=== PATIENT | female | born 1970 ===

== ENCOUNTER 2023-03-11 16:12 | Emergency (ER) | payer OTHER, SELFPAY ==
[2023-03-11 16:35] VITALS: BP 163/77; PULSE 63; RESP 18; TEMP 37.2; O2SAT 99; BMI 24.6
[2023-03-11 17:11] LABS: Add Manual Diff / Slide Review NO; Basophils Absolute Auto 0 /uL (0-100); Basophils Percent Auto 0.8 % (0-2); Eosinophils Absolute Auto 100 /uL (0-450); Eosinophils Percent Auto 2.9 % (2-4); Hematocrit 39.5 % (36-46); Hemoglobin 13.5 g/dL (12.0-16.0); Lymphocytes Absolute Auto 1300 /uL (1100-4500); Lymphocytes Percent Auto 36.7 % (25-40); Mean Corpuscular HGB Conc 34.2 % (30-36); Mean Corpuscular Hemoglobin 30.1 PG (26-34); Mean Corpuscular Volume 88.1 fL (80-100); Monocytes Absolute Auto 600 /uL (0-900); Neutrophils Absolute Auto 1500 /uL (1500-7000); Neutrophils Percent Auto 43.6 % (50-75); Platelet Count 245 X10^3/uL (150-400); Red Blood Cell Count 4.48 X10^6/uL (4.0-5.2); Red Cell Distribution Width 12.7 % (11.6-14.8); White Blood Cell Count 3.5 X10^3/uL (4.5-11.0)
[2023-03-11 17:15] LABS: Alanine Aminotransferase 28 IU/L (<35); Albumin Globulin Ratio 1.3 (1.0-2.8); Alkaline Phosphatase 65 U/L (38-126); Aspartate Aminotransferase 28 IU/L (14-36); BUN Creatinine Ratio 26.7 (6-22); Bilirubin Total 0.4 mg/dL (0.2-1.3); Blood Urea Nitrogen 16 mg/dL (7-17); Calcium 8.9 mg/dL (8.4-10.2); Carbon Dioxide 27 mmol/L (22-32); Chloride 102 mmol/L (98-107); Estimated Glomerular Filt Rate > 60 mL/min (>60); Globulin 3.1 g/dL (1.7-4.1); Glucose 80 mg/dL (70-100); HEMOLYSIS 17 (0-50); Lipase 75 U/L (23-300); Potassium 4.1 mmol/L (3.4-5.1); Sodium 136 mmol/L (137-145); Total Protein 7.1 g/dL (6.3-8.2)
[2023-03-11 21:19] LABS: Bacteria Urine Few (2-10); Culture Indicated Urine Specimen Cultured; RBC Urine 5-10/HPF (0-5/HPF); Squamous Epithelial Cell Urine 1-5 /HPF (0-5/HPF); Transitional Epi Cells Urine 0-1/HPF (0-5/HPF); WBC Urine 5-10/HPF (0-5/HPF)
[2023-03-11 21:23] LABS: Ictotest Urine Negative (Negative)
--- NOTE | 2023-03-11 21:25 | ED_ITS ---
HPI - Abdominal Pain General Chief Complaint: Abdominal Pain Stated Complaint: Vomiting, Blood in urine Time Seen by Provider: 03/11/23 20:52 Source: patient Mode of arrival: Ambulatory History of Present Illness HPI narrative: Patient is a 52-year-old female who presents with nausea vomiting abdominal pain. She reports she is had intermittent vomiting early satiety ongoing since June. She reports that she did have a CT at some point. She also reports that she had an EGD which was normal. She does not remember that she is had a colonoscopy. Today it is just been on going she is feeling a bit better after Zofran and waiting for numerous hours in the emergency department. She was dizzy little lightheaded and her head hurts as well. No passing out. Her symptoms have been ongoing since at least January of 2022 however pain and vomiting today brought her in Related Data Previous Rx's Medication Instructions Recorded ciprofloxacin HCl 500 mg tablet 500 mg PO BID #14 tabs 03/11/23 (Cipro) metronidazole 500 mg tablet 500 mg PO Q8H 7 days #21 tabs 03/11/23 ondansetron 4 mg disintegrating 4 mg PO Q8H PRN nausea and 03/11/23 tablet vomiting #10 tabs Allergies Allergy/AdvReac Type Severity Reaction Status Date / Time erythromycin base Allergy Mild Vomiting Verified 03/11/23 16:52 Review of Systems Review of Systems ROS Unobtainable: All systems reviewed & are unremarkable except as noted in HPI and below Patient History Social History Smoking Status: Never smoker Smoking Status: Never smoker Substance Use Type: does not use Exam Initial Vital Signs Initial Vital Signs: Vital Signs Temperature 99.0 F 03/11/23 16:35 Pulse Rate 63 03/11/23 16:35 Respiratory Rate 18 03/11/23 16:35 Blood Pressure 163/77 H 03/11/23 16:35 Pulse Oximetry 99 03/11/23 16:35 Oxygen Delivery Method Room Air 03/11/23 16:35 GENERAL: Alert pleasant 52-year-old female appears to not feel well and in no acute distress. HEENT: Head atraumatic,EOMI, pupils reactive, face symmetric, moist mucous membranes CARDIOVASCULAR: Regular rate and rhythm without murmurs, rubs or gallops. RESPIRATORY: Breath sounds equal bilaterally, no wheezes rales or rhonchi. ABDOMEN: Soft, nontender. Normoactive bowel sounds all 4 quadrants. No guarding or rebound. : No CVA tenderness EXTREMITIES: Normal range of motion, no clubbing or edema. Neurovascularly intact NEUROLOGICAL: Alert and oriented x4. SKIN: Warm, dry, no laceration, no petechiae, no rashes or lesions. Course Orders Ordered: ED Orders 03/11/23 21:29 CT abdomen pelvis w con Stat Discontinued Medications Sodium Chloride (Normal Saline 0.9%) 1,000 mls @ 1,000 mls/hr IV BOLUS ONE Stop: 03/11/23 22:28 Last Infusion: 03/11/23 22:50 Dose: 0 mls/hr Documented By: Admin: 03/11/23 21:50 Dose: 1,000 mls/hr Documented By: VIELKA Ketorolac Tromethamine (Ketorolac 30 Mg/Ml Vial) 15 mg IV NOW ONE Stop: 03/11/23 21:30 Last Admin: 03/11/23 21:51 Dose: 15 mg Documented By: VIELKA Ondansetron HCl (Ondansetron 4 Mg/2 Ml Inj) 4 mg IV NOW PRN PRN Reason: Nausea And Vomiting Last Admin: 03/11/23 21:51 Dose: 4 mg Documented By: VIELKA Pantoprazole Sodium (Pantoprazole 40 Mg Vial) 40 mg IV NOW ONE Stop: 03/11/23 21:30 Last Admin: 03/11/23 21:51 Dose: 40 mg Documented By: VIELKA Vital Signs Vital signs: Vital Signs - 8 hr 03/11/23 23:20 Temperature 97.3 F L Pulse Rate 70 Respiratory Rate 16 Blood Pressure 122/68 Pulse Oximetry 99 Oxygen Delivery Method Room Air MDM - Abdominal Pain Lab Data 03/11/23 16:51 03/11/23 16:51 Labs: Lab Results 03/11/23 03/11/23 03/11/23 Range/Units 16:51 16:51 20:30 WBC 3.5 L (4.5-11.0) X10^3/uL RBC 4.48 (4.0-5.2) X10^6/uL Hgb 13.5 (12.0-16.0) g/dL Hct 39.5 (36-46) % MCV 88.1 (80-100) fL MCH 30.1 (26-34) PG MCHC 34.2 (30-36) % RDW 12.7 (11.6-14.8) % Plt Count 245 (150-400) X10^3/uL Neut % (Auto) 43.6 L (50-75) % Lymph % (Auto) 36.7 (25-40) % [place] % (Auto) 16.0 H (3-14) % Eos % (Auto) 2.9 (2-4) % Baso % (Auto) 0.8 (0-2) % Neut # (Auto) 1500 (6571-3362) /uL Lymph # (Auto) 1300 (5621-8196) /uL [place] # (Auto) 600 (0-900) /uL Eos # (Auto) 100 (0-450) /uL Baso # (Auto) 0 (0-100) /uL Sodium 136 L (137-145) mmol/L Potassium 4.1 (3.4-5.1) mmol/L Chloride 102 (98-107) mmol/L Carbon Dioxide 27 (22-32) mmol/L BUN 16 (7-17) mg/dL Creatinine 0.60 (0.52-1.04) mg/dL Estimated GFR > 60 (>60) mL/min BUN/Creatinine Ratio 26.7 H (6-22) Glucose 80 (70-100) mg/dL Calcium 8.9 (8.4-10.2) mg/dL Total Bilirubin 0.4 (0.2-1.3) mg/dL AST 28 (14-36) IU/L ALT 28 (<35) IU/L Alkaline Phosphatase 65 (38-126) U/L Total Protein 7.1 (6.3-8.2) g/dL Albumin 4.0 (3.5-5.0) g/dL Globulin 3.1 (1.7-4.1) g/dL Albumin/Globulin Ratio 1.3 (1.0-2.8) Lipase 75 (23-300) U/L Ur Bilirubin Confirm (Negative) Urine RBC 5-10/hpf H (0-5/HPF) Urine WBC 5-10/hpf H (0-5/HPF) Ur Squamous Epith Cells 1-5 /hpf (0-5/HPF) Ur Transition Epith Cell 0-1/hpf (0-5/HPF) Urine Bacteria Few (2-10) H (None) Ur Culture Indicated? Specimen cultured 03/11/23 Range/Units 20:30 WBC (4.5-11.0) X10^3/uL RBC (4.0-5.2) X10^6/uL Hgb (12.0-16.0) g/dL Hct (36-46) % MCV (80-100) fL MCH (26-34) PG MCHC (30-36) % RDW (11.6-14.8) % Plt Count (150-400) X10^3/uL Neut % (Auto) (50-75) % Lymph % (Auto) (25-40) % [place] % (Auto) (3-14) % Eos % (Auto) (2-4) % Baso % (Auto) (0-2) % Neut # (Auto) (8365-8431) /uL Lymph # (Auto) (0452-7709) /uL [place] # (Auto) (0-900) /uL Eos # (Auto) (0-450) /uL Baso # (Auto) (0-100) /uL Sodium (137-145) mmol/L Potassium (3.4-5.1) mmol/L Chloride (98-107) mmol/L Carbon Dioxide (22-32) mmol/L BUN (7-17) mg/dL Creatinine (0.52-1.04) mg/dL Estimated GFR (>60) mL/min BUN/Creatinine Ratio (6-22) Glucose (70-100) mg/dL Calcium (8.4-10.2) mg/dL Total Bilirubin (0.2-1.3) mg/dL AST (14-36) IU/L ALT (<35) IU/L Alkaline Phosphatase (38-126) U/L Total Protein (6.3-8.2) g/dL Albumin (3.5-5.0) g/dL Globulin (1.7-4.1) g/dL Albumin/Globulin Ratio (1.0-2.8) Lipase (23-300) U/L Ur Bilirubin Confirm Negative (Negative) Urine RBC (0-5/HPF) Urine WBC (0-5/HPF) Ur Squamous Epith Cells (0-5/HPF) Ur Transition Epith Cell (0-5/HPF) Urine Bacteria (None) Ur Culture Indicated? Point of care testing: Urine Dip Bedside Urine Glucose Negative Bedside Urine Bilirubin + 1 Bedside Urine Ketone - Negative Urine Specific [place] 1.030 Bedside Urine Occult Blood ++ Bedside Urine pH 5.5 Bedside Urine Protein +/- 15 Bedside Urine Urobilinogen - Negative Bedside Urine Nitrite - Negative Bedside Urine Leukocytes - Negative Esterase Imaging Data CT scan - abdomen/pelvis: Radiologist's Impression: PROCEDURE:? CT ABDOMEN PELVIS W CON ? INDICATIONS:? vomiting hematuria, ? TECHNIQUE:? After the administration of IV contrast, axial sections were acquired from the lung bases to the pubic symphysis.? Coronal and sagittal reformats were performed.? For radiation dose reduction, the following was used:? automated exposure control, adjustment of mA and/or kV according to patient size. ? COMPARISON:? None. ? FINDINGS:? Image quality:? Excellent.? ? Lung bases:? There is minimal atelectasis.? ? Heart:? Heart is normal in size. ? ? ABDOMEN: Liver:? No discrete mass lesion.? There is heterogeneous enhancement of the liver. Gallbladder:? Within normal limits without calcified gallstones.? ? Biliary ducts:? No biliary ductal dilatation.? ? Pancreas:? Unremarkable.? ? Spleen:? Normal in size.? ? Adrenal Glands:? No adrenal nodules.? ? Kidneys and Ureters:? No hydronephrosis.? No discrete renal stone identified.? ? ? Stomach and Bowel:? Stomach and small bowel loops are normal in caliber and wall thickness.? The appendix is normal.? There is mild bowel wall thickening in the rectum.? Peritoneum:? There is a small amount of free fluid in the pelvis.? No free air.? ? Ventral Wall: ? No hernia.? Abdominal Nodes:? No retroperitoneal or mesenteric adenopathy by size criteria.? Vessels:? Aorta and inferior vena cava are normal in size.? ? PELVIS: Pelvic Organs:? Unremarkable.? ? Bladder:? Unremarkable.? ? Pelvic Nodes: No enlarged lymph nodes.? Miscellaneous: No inguinal hernias are seen. ? ? ? Bones:? Visualized osseous structures demonstrate no suspicious focal lesions. ? IMPRESSION:? ? 1.? Mild rectal wall thickening is nonspecific and may reflect a proctocolitis but the differential includes a mass.? Recommend correlation clinically including with colonoscopy if indicated. ? 2. Small amount of free fluid in the pelvis is nonspecific and may be reactive. ? 3. Heterogeneous enhancement the liver without a discrete mass.? The findings are also nonspecific and correlation is recommended with liver function tests.? ? ? Dictated by: Parveen Thomas M.D. on 03/11/2023 at 22:4 MDM Narrative Medical decision making narrative: Patient 52-year-old female does not have a primary care provider presents today with ongoing abdominal pain nausea vomiting. She has early satiety concern for possible underlying cancer. CT does show possible proctocolitis versus a mass. She does have a WBC count of 3.5 no significant anemia electrolytes are within normal limits no RADHA. She is necessarily having pain in her rectum or fever she has some epigastric upper abdominal pain with nausea vomiting. At this time I think reasonable to treat her with antibiotics to see if there is improvement. I did discuss with her at length concern for underlying malignancy she needs a colonoscopy which she understands and agrees with. No need for any emergent colonoscopy she does not have any type of obstruction. She is feeling better af ter IV fluids and Zofran. Discharge Plan Departure Patient Disposition: Home Clinical Impression: Proctocolitis Instructions: DI for Colitis Activity Restrictions/Additional Instructions: *You have been diagnosed with proctocolitis *What to do: At this time you definitely need colonoscopy for cancer screening. Your rectum is inflamed may be due to infection versus a mass. *Continue to take medications as directed Cipro 500 mg twice a day for 7 days Flagyl 500 mg 3 times a day for 7 days Zofran 4 mg every 8 hours if needed for nausea or vomiting *Follow up with your primary care provider in 2-3 days or call [phone] Call surgery to schedule outpatient colonoscopy *Return to ER if you should have increasing nausea vomiting pain bloody stools dizziness lightheadedness or any new, worsening or concerning symptoms Prescriptions: New metronidazole 500 mg tablet 500 mg PO Q8H 7 Days Qty: 21 0RF ciprofloxacin HCl [Cipro] 500 mg tablet 500 mg PO BID Qty: 14 0RF ondansetron 4 mg tablet,disintegrating 4 mg PO Q8H PRN (Reason: nausea and vomiting) Qty: 10 0RF Referrals: Melisa Ayers MD [Physician] - Miscellaneous,MD Ronal [Primary Care Provider] - Stand Alone Forms: Patient Portal/API
--- NOTE | 2023-03-11 21:29 | DI.CT.S_ITS ---
PROCEDURE: CT ABDOMEN PELVIS W CON INDICATIONS: vomiting hematuria, TECHNIQUE: After the administration of IV contrast, axial sections were acquired from the lung bases to the pubic symphysis. Coronal and sagittal reformats were performed. For radiation dose reduction, the following was used: automated exposure control, adjustment of mA and/or kV according to patient size. COMPARISON: None. FINDINGS: Image quality: Excellent. Lung bases: There is minimal atelectasis. Heart: Heart is normal in size. ABDOMEN: Liver: No discrete mass lesion. There is heterogeneous enhancement of the liver. Gallbladder: Within normal limits without calcified gallstones. Biliary ducts: No biliary ductal dilatation. Pancreas: Unremarkable. Spleen: Normal in size. Adrenal Glands: No adrenal nodules. Kidneys and Ureters: No hydronephrosis. No discrete renal stone identified. Stomach and Bowel: Stomach and small bowel loops are normal in caliber and wall thickness. The appendix is normal. There is mild bowel wall thickening in the rectum. Peritoneum: There is a small amount of free fluid in the pelvis. No free air. Ventral Wall: No hernia. Abdominal Nodes: No retroperitoneal or mesenteric adenopathy by size criteria. Vessels: Aorta and inferior vena cava are normal in size. PELVIS: Pelvic Organs: Unremarkable. Bladder: Unremarkable. Pelvic Nodes: No enlarged lymph nodes. Miscellaneous: No inguinal hernias are seen. Bones: Visualized osseous structures demonstrate no suspicious focal lesions. IMPRESSION: 1. Mild rectal wall thickening is nonspecific and may reflect a proctocolitis but the differential includes a mass. Recommend correlation clinically including with colonoscopy if indicated. 2. Small amount of free fluid in the pelvis is nonspecific and may be reactive. 3. Heterogeneous enhancement the liver without a discrete mass. The findings are also nonspecific and correlation is recommended with liver function tests. Dictated by: Parveen Thomas M.D. on 03/11/2023 at 22:48 Approved by: Parveen Thomas M.D. on 03/11/2023 at 22:52
[2023-03-11] MEDS: SODIUM CHLORIDE 0.9% 1,000 ML 1000 ML IV (21:50)
[2023-03-11] MEDS: KETOROLAC 30 MG/ML VIAL 15 MG IV (21:51)
[2023-03-11] MEDS: PANTOPRAZOLE 40 MG VIAL IV (21:51)
[2023-03-11] MEDS: ONDANSETRON 4 MG/2 ML INJ IV (21:51)
[2023-03-11 23:20] VITALS: BP 122/68; PULSE 70; RESP 16; TEMP 36.3; O2SAT 99
== END 2023-03-11 23:20 | disposition home or self-care (01) ==
PROVIDERS: Emergency Medicine; Emergency Provider Emergency Medicine
DX: K52.9 Noninfective gastroenteritis and colitis, unspecified (principal); R11.2 Nausea with vomiting, unspecified
CPT/HCPCS: 36415; 74177; 80053; 81003; 81015; 83690; 85025; 87086; 93005; 96361; 96374; 96375; 99284; C9113; J1885; J2405; Q9967

== ENCOUNTER 2023-03-21 12:52 | Emergency (ER) | payer OTHER, SELFPAY ==
[2023-03-21] VITALS (7 sets, daily range): BP systolic 132–171; BP diastolic 75–90; PULSE 60–70; RESP 18; TEMP 36.3; O2SAT 99–100; BMI 24.6
--- NOTE | 2023-03-21 12:56 | ED_ITS ---
HPI - Abdominal Pain <iVcente Clay PA-C - Last Filed: 03/21/23 17:57> General Chief Complaint: Abdominal Pain Stated Complaint: here t-10/symptoms worsening/urine dark brown Time Seen by Provider: 03/21/23 12:53 History of Present Illness HPI narrative: This is a 52-year-old female presents emergency department due to sensations of early satiety, nausea, 1 episode of vomiting as well as a dark colored urine. Patient states that she was here 10 days ago where she was seen and received antibiotics in the CT scan and recommended follow up with the GI. She attempted to make an appointment with GI but states she is not able to be seen until May. Patient is not have a primary care provider. Denies any new symptoms just continue symptoms from what she was having previously. States that she is had loose stools but denies any significant diarrhea feet, fevers, blood in his stool, or blood in the vomit. Related Data Previous Rx's Medication Instructions Recorded ciprofloxacin HCl 500 mg tablet 500 mg PO BID #14 tabs 03/11/23 (Cipro) ondansetron 4 mg disintegrating 4 mg PO Q8H PRN nausea and 03/11/23 tablet vomiting #10 tabs pantoprazole 40 mg tablet,delayed 40 mg PO DAILY #14 tabs 03/21/23 release Allergies Allergy/AdvReac Type Severity Reaction Status Date / Time erythromycin base Allergy Mild Vomiting Verified 03/21/23 13:01 Review of Systems <Vicente Clay PA-C - Last Filed: 03/21/23 17:57> Review of Systems Narrative: GENERAL: Denies chills, fatigue, malaise, fever, sweats. HEENT: Denies sinus pain, ear pain, sore throat, difficulty swallowing, dizziness. RESPIRATORY: Denies dyspnea, cough, wheezing, hemoptysis, sputum. CARDIOVASCULAR: Denies chest pain, palpitations, orthopnea, edema, GASTROINTESTINAL: Reports nausea, vomiting, early satiety. Denies, abdominal pain, diarrhea, constipation, melena. : Denies dysuria, frequency, incontinence, hematuria, urinary retention. MUSCULOSKELETAL: denies weakness, joint pain, or bony pain SKIN: Denies rash, skin lesions, or other NEUROLOGIC: Denies weakness, headache, numbness, change in speech, confusion, seizures, incoordination. PSYCHIATRIC: No concerning psychosocial issues. 12 point review of systems is negative except for those stated above Patient History <Vicente Clay PA-C - Last Filed: 03/21/23 17:57> Social History Smoking Status: Never smoker Smoking Status: Never smoker Substance Use Type: does not use Exam <Vicente Clay PA-C - Last Filed: 03/21/23 17:57> Narrative Exam Narrative: GENERAL: Well-developed patient, in mild distress. HEAD: Atraumatic. Normocephalic. EYES: Pupils equal round and reactive. Extraocular motions intact. No scleral icterus. No injection or drainage. ENT: Nose without bleeding, purulent drainage. Throat without erythema, tonsillar hypertrophy or exudate. Airway patent. NECK: Trachea midline. Non tender CARDIOVASCULAR: Regular rate and rhythm without murmurs, gallops, or rubs. RESPIRATORY: Clear to auscultation. Breath sounds equal bilaterally. No wheezes, rales, or rhonchi. GASTROINTESTINAL: Nondistended, left upper quadrant mild tenderness to pa lpation. EXTREMITIES: No edema or joint tenderness. BACK: Nontender without deformity or crepitance. No flank tenderness. NEURO: AOx3. SKIN: No rash or erythema of visible areas Initial Vital Signs Initial Vital Signs: Vital Signs Pulse Rate 68 03/21/23 12:57 Blood Pressure 171/90 H 03/21/23 12:57 Pulse Oximetry 99 03/21/23 12:57 <Pramod Montes DO - Last Filed: 03/22/23 07:17> Initial Vital Signs Initial Vital Signs: Vital Signs Pulse Rate 68 03/21/23 12:57 Blood Pressure 171/90 H 03/21/23 12:57 Pulse Oximetry 99 03/21/23 12:57 Course <Vicente Clay PA-C - Last Filed: 03/21/23 17:57> Orders Ordered: Discontinued Medications Sodium Chloride (Normal Saline 0.9%) 1,000 mls @ 1,000 mls/hr IV BOLUS ONE Stop: 03/21/23 14:04 Last Infusion: 03/21/23 14:38 Dose: 0 mls/hr Documented By: Admin: 03/21/23 13:31 Dose: 1,000 mls/hr Documented By: LOULOU Vital Signs Vital signs: Vital Signs - 8 hr 03/21/23 13:01 03/21/23 12:57 03/21/23 12:57 Temperature 97.4 F L Pulse Rate 69 68 Respiratory Rate 18 Blood Pressure 171/90 H 171/90 H Pulse Oximetry 99 99 Oxygen Delivery Method Room Air 03/21/23 13:00 03/21/23 13:00 03/21/23 13:33 Temperature Pulse Rate 70 62 Respiratory Rate Blood Pressure 151/81 H Pulse Oximetry 100 100 Oxygen Delivery Method 03/21/23 13:34 03/21/23 13:34 03/21/23 14:00 Temperature Pulse Rate 62 Respiratory Rate Blood Pressure 159/75 H 133/77 Pulse Oximetry 100 Oxygen Delivery Method 03/21/23 14:00 03/21/23 14:30 03/21/23 14:30 Temperature Pulse Rate 60 62 Respiratory Rate Blood Pressure 132/79 Pulse Oximetry 100 100 Oxygen Delivery Method <Pramod Montes DO - Last Filed: 03/22/23 07:17> Orders Ordered: Discontinued Medications Sodium Chloride (Normal Saline 0.9%) 1,000 mls @ 1,000 mls/hr IV BOLUS ONE Stop: 03/21/23 14:04 Last Infusion: 03/21/23 14:38 Dose: 0 mls/hr Documented By: Admin: 03/21/23 13:31 Dose: 1,000 mls/hr Documented By: LOULOU Vital Signs Vital signs: Vital Signs - 8 hr 03/21/23 13:01 03/21/23 12:57 03/21/23 12:57 Temperature 97.4 F L Pulse Rate 69 68 Respiratory Rate 18 Blood Pressure 171/90 H 171/90 H Pulse Oximetry 99 99 Oxygen Delivery Method Room Air 03/21/23 13:00 03/21/23 13:00 03/21/23 13:33 Temperature Pulse Rate 70 62 Respiratory Rate Blood Pressure 151/81 H Pulse Oximetry 100 100 Oxygen Delivery Method 03/21/23 13:34 03/21/23 13:34 03/21/23 14:00 Temperature Pulse Rate 62 Respiratory Rate Blood Pressure 159/75 H 133/77 Pulse Oximetry 100 Oxygen Delivery Method 03/21/23 14:00 03/21/23 14:30 03/21/23 14:30 Temperature Pulse Rate 60 62 Respiratory Rate Blood Pressure 132/79 Pulse Oximetry 100 100 Oxygen Delivery Method MDM - Abdominal Pain <Vicente Clay PA-C - Last Filed: 03/21/23 17:57> Lab Data 03/21/23 13:14 03/21/23 13:14 Labs: Lab Results 03/21/23 03/21/23 03/21/23 Range/Units 13:14 13:14 13:31 WBC 6.3 (4.5-11.0) X10^3/uL RBC 4.35 (4.0-5.2) X10^6/uL Hgb 13.3 (12.0-16.0) g/dL Hct 37.9 (36-46) % MCV 87.3 (80-100) fL MCH 30.5 (26-34) PG MCHC 34.9 (30-36) % RDW 12.8 (11.6-14.8) % Plt Count 283 (150-400) X10^3/uL Neut % (Auto) 60.2 (50-75) % Lymph % (Auto) 27.1 (25-40) % Mckinley % (Auto) 8.9 (3-14) % Eos % (Auto) 3.2 (2-4) % Baso % (Auto) 0.6 (0-2) % Neut # (Auto) 3800 (1849-0648) /uL Lymph # (Auto) 1700 (8746-3969) /uL Mckinley # (Auto) 600 (0-900) /uL Eos # (Auto) 200 (0-450) /uL Baso # (Auto) 0 (0-100) /uL Sodium 138 (137-145) mmol/L Potassium 3.9 (3.4-5.1) mmol/L Chloride 106 (98-107) mmol/L Carbon Dioxide 27 (22-32) mmol/L BUN 10 (7-17) mg/dL Creatinine 0.65 (0.52-1.04) mg/dL Estimated GFR > 60 (>60) mL/min BUN/Creatinine Ratio 15.4 (6-22) Glucose 92 (70-100) mg/dL Calcium 8.9 (8.4-10.2) mg/dL Total Bilirubin 0.5 (0.2-1.3) mg/dL AST 38 H (14-36) IU/L ALT 41 H (<35) IU/L Alkaline Phosphatase 67 (38-126) U/L Total Protein 7.0 (6.3-8.2) g/dL Albumin 3.9 (3.5-5.0) g/dL Globulin 3.1 (1.7-4.1) g/dL Albumin/Globulin Ratio 1.3 (1.0-2.8) Lipase 89 (23-300) U/L Urine Color Scarlet Urine Appearance Cloudy Urine pH 5.0 (4.5-8.0) Ur Specific [place] >=1.030 H (1.000-1.035) Urine Protein Negative (Negative) Urine Glucose (UA) Negative (Negative) g/dL Urine Ketones 1+ H (NEGATIVE) Urine Occult Blood 1+ H (Negative) Urine Nitrate Negative (Negative) Urine Bilirubin 1+ H (NEGATIVE) Ur Bilirubin Confirm Positive H (Negative) Urine Urobilinogen 0.2 (0.2) E.U./dL Ur Leukocyte Esterase 1+ H (NEGATIVE) Urine RBC 1-5/hpf (0-5/HPF) Urine WBC 1-5/hpf (0-5/HPF) Ur Squamous Epith Cells 0-1 /hpf (0-5/HPF) Calcium Oxalate Crystal Moderate H Urine Bacteria Moderate (10-30) H (None) Urine Mucus 2+ H (Negative) Ur Culture Indicated? Specimen cultured Point of care testing: Urine Dip Bedside Urine Glucose Negative Bedside Urine Bilirubin - Negative Bedside Urine Ketone +/- 5 Urine Specific [place] 1.030 Bedside Urine Occult Blood ++ Bedside Urine pH 5.5 Bedside Urine Protein - Negative Bedside Urine Urobilinogen - Negative Bedside Urine Nitrite - Negative Bedside Urine Leukocytes ++ 125 Esterase MDM Narrative Medical decision making narrative: MDM * differential diagnosis includes but not limited to gastroenteritis, cholecystitis, pancreatitis, proctocolitis, ulcerative colitis, Crohn's disease, GI mass * Prior records reviewed: Patient was seen here 10 days ago for abdominal pain as well as vomiting and blood in urine. Reportedly has not EGD which was unremarkable. Does not recall she is had a colonoscopy. CT did show possible proctitis versus a mass. White count within normal limits. Patient was treated with antibiotics. Metronidazole, ciprofloxacin prescribed. Was recommended to follow up with her PCP for colonoscopy. * My lab interpretation: CBC unremarkable. No leukocytosis. CMP unremarkable. Lipase unremarkable. * My imgaing interpretation: None obtained * Clinical Decision Rules/Scores evaluated: None * Independent discussions with: None ED Course: This is a 52-year-old female presents emergency department due to continued sensation of early satiety, some nausea. She is not report any new symptoms but states that her symptoms are continuing her causing her to return to be re-evaluated. On exam patient is not exhibit any significant tenderness palpation that is new for the patient. The abdomen was nondistended. All of her vitals were within limits and her work was unremarkable. Shared decision making was utilized and patient elected to not receive a repeat CT as she just had a CT 10 days ago which showed proctocolitis but mass included on differential. Reinforced the importance the patient falling up with GI. She has an appointment this May. Patient has already received a course of antibiotics from visit 10 days ago and elected not to prescribe any further antibiotics due to the risks of a possible C diff infection. Pantoprazole prescribed for possible symptomatic relief. Patient did not report any dysuria or urinary frequency or urinary hesitancy. No antibiotics prescribed although UA did have positive leukocytes. Shared Decision Making: Discussed plan with patient who is comfortable with the plan Social Considerations: None Disposition: Discharged home <Pramod Montes, - Last Filed: 03/22/23 07:17> Lab Data Labs: Lab Results 03/21/23 03/21/23 03/21/23 Range/Units 13:14 13:14 13:31 WBC 6.3 (4.5-11.0) X10^3/uL RBC 4.35 (4.0-5.2) X10^6/uL Hgb 13.3 (12.0-16.0) g/dL Hct 37.9 (36-46) % MCV 87.3 (80-100) fL MCH 30.5 (26-34) PG MCHC 34.9 (30-36) % RDW 12.8 (11.6-14.8) % Plt Count 283 (150-400) X10^3/uL Neut % (Auto) 60.2 (50-75) % Lymph % (Auto) 27.1 (25-40) % Mckinley % (Auto) 8.9 (3-14) % Eos % (Auto) 3.2 (2-4) % Baso % (Auto) 0.6 (0-2) % Neut # (Auto) 3800 (3823-3672) /uL Lymph # (Auto) 1700 (5589-3969) /uL Mckinley # (Auto) 600 (0-900) /uL Eos # (Auto) 200 (0-450) /uL Baso # (Auto) 0 (0-100) /uL Sodium 138 (137-145) mmol/L Potassium 3.9 (3.4-5.1) mmol/L Chloride 106 (98-107) mmol/L Carbon Dioxide 27 (22-32) mmol/L BUN 10 (7-17) mg/dL Creatinine 0.65 (0.52-1.04) mg/dL Estimated GFR > 60 (>60) mL/min BUN/Creatinine Ratio 15.4 (6-22) Glucose 92 (70-100) mg/dL Calcium 8.9 (8.4-10.2) mg/dL Total Bilirubin 0.5 (0.2-1.3) mg/dL AST 38 H (14-36) IU/L ALT 41 H (<35) IU/L Alkaline Phosphatase 67 (38-126) U/L Total Protein 7.0 (6.3-8.2) g/dL Albumin 3.9 (3.5-5.0) g/dL Globulin 3.1 (1.7-4.1) g/dL Albumin/Globulin Ratio 1.3 (1.0-2.8) Lipase 89 (23-300) U/L Urine Color Scarlet Urine Appearance Cloudy Urine pH 5.0 (4.5-8.0) Ur Specific [place] >=1.030 H (1.000-1.035) Urine Protein Negative (Negative) Urine Glucose (UA) Negative (Negative) g/dL Urine Ketones 1+ H (NEGATIVE) Urine Occult Blood 1+ H (Negative) Urine Nitrate Negative (Negative) Urine Bilirubin 1+ H (NEGATIVE) Ur Bilirubin Confirm Positive H (Negative) Urine Urobilinogen 0.2 (0.2) E.U./dL Ur Leukocyte Esterase 1+ H (NEGATIVE) Urine RBC 1-5/hpf (0-5/HPF) Urine WBC 1-5/hpf (0-5/HPF) Ur Squamous Epith Cells 0-1 /hpf (0-5/HPF) Calcium Oxalate Crystal Moderate H Urine Bacteria Moderate (10-30) H (None) Urine Mucus 2+ H (Negative) Ur Culture Indicated? Specimen cultured Point of care testing: Urine Dip Bedside Urine Glucose Negative Bedside Urine Bilirubin - Negative Bedside Urine Ketone +/- 5 Urine Specific [place] 1.030 Bedside Urine Occult Blood ++ Bedside Urine pH 5.5 Bedside Urine Protein - Negative Bedside Urine Urobilinogen - Negative Bedside Urine Nitrite - Negative Bedside Urine Leukocytes ++ 125 Esterase Discharge Plan Departure Patient Disposition: Home Clinical Impression: Abdominal discomfort Activity Restrictions/Additional Instructions: Thank you for coming to the [facility] Emergency Department today. As we discussed your lab work today was unremarkable. There was no changes from the labwork you had 10 days ago. I recommend you follow up with the stroke neurologist you referred to your appointment next month. Please take these medications as they may help with the symptoms. I recommend you continue with the diet your currently eating and slowly progress as tolerated. I sent your medication to [facility] in [place]. I hope you feel better soon. Prescriptions: New pantoprazole 40 mg tablet,delayed release (DR/EC) 40 mg PO DAILY Qty: 14 0RF No Action ciprofloxacin HCl [Cipro] 500 mg tablet 500 mg PO BID Qty: 14 0RF ondansetron 4 mg tablet,disintegrating 4 mg PO Q8H PRN (Reason: nausea and vomiting) Qty: 10 0RF Referrals: Miscellaneous,Doctor, MD [Primary Care Provider] - Stand Alone Forms: Patient Portal/API <Pramod Montes DO - Last Filed: 03/22/23 07:17> Cosign ED Attending Jillian Attestation: I was immediately available in the department for consultation. Documentation has been reviewed. I agree with assessment and plan.
[2023-03-21 13:20] LABS: Add Manual Diff / Slide Review NO; Basophils Absolute Auto 0 /uL (0-100); Basophils Percent Auto 0.6 % (0-2); Eosinophils Absolute Auto 200 /uL (0-450); Eosinophils Percent Auto 3.2 % (2-4); Hematocrit 37.9 % (36-46); Hemoglobin 13.3 g/dL (12.0-16.0); Lymphocytes Absolute Auto 1700 /uL (1100-4500); Lymphocytes Percent Auto 27.1 % (25-40); Mean Corpuscular HGB Conc 34.9 % (30-36); Mean Corpuscular Hemoglobin 30.5 PG (26-34); Mean Corpuscular Volume 87.3 fL (80-100); Monocytes Absolute Auto 600 /uL (0-900); Monocytes Percent Auto 8.9 % (3-14); Neutrophils Absolute Auto 3800 /uL (1500-7000); Neutrophils Percent Auto 60.2 % (50-75); Platelet Count 283 X10^3/uL (150-400); Red Blood Cell Count 4.35 X10^6/uL (4.0-5.2); Red Cell Distribution Width 12.8 % (11.6-14.8); White Blood Cell Count 6.3 X10^3/uL (4.5-11.0)
[2023-03-21] MEDS: SODIUM CHLORIDE 0.9% 1,000 ML 1000 ML IV (13:31)
[2023-03-21 13:34] LABS: Alanine Aminotransferase 41 IU/L (<35); Albumin 3.9 g/dL (3.5-5.0); Albumin Globulin Ratio 1.3 (1.0-2.8); Alkaline Phosphatase 67 U/L (38-126); Aspartate Aminotransferase 38 IU/L (14-36); BUN Creatinine Ratio 15.4 (6-22); Bilirubin Total 0.5 mg/dL (0.2-1.3); Blood Urea Nitrogen 10 mg/dL (7-17); Calcium 8.9 mg/dL (8.4-10.2); Carbon Dioxide 27 mmol/L (22-32); Chloride 106 mmol/L (98-107); Estimated Glomerular Filt Rate > 60 mL/min (>60); Globulin 3.1 g/dL (1.7-4.1); Glucose 92 mg/dL (70-100); HEMOLYSIS < 15 (0-50); Lipase 89 U/L (23-300); Potassium 3.9 mmol/L (3.4-5.1); Sodium 138 mmol/L (137-145)
[2023-03-21 13:47] LABS: Bilirubin Urine UA 1+ (NEGATIVE); Glucose Urine UA NEGATIVE (Negative); Ketones Urine UA 1+ (NEGATIVE); Leukocyte Esterase Urine UA 1+ (NEGATIVE); Nitrite Urine UA NEGATIVE (Negative); Occult Blood Urine UA 1+ (Negative); Protein Urine UA NEGATIVE (Negative); Specific Gravity Urine UA >=1.030 (1.000-1.035); Urobilinogen Urine UA 0.2 E.U./dL (0.2)
[2023-03-21 13:58] LABS: Color Urine UA Amber
[2023-03-21 13:59] LABS: Appearance Urine UA Cloudy; Ictotest Urine Positive (Negative); RBC Urine 1-5/HPF (0-5/HPF); Squamous Epithelial Cell Urine 0-1 /HPF (0-5/HPF); WBC Urine 1-5/HPF (0-5/HPF)
[2023-03-21 14:00] LABS: Bacteria Urine Moderate (10-30); Calcium Oxalate Crystals Urine Moderate; Culture Indicated Urine Specimen Cultured; Mucus Urine 2+ (Negative)
== END 2023-03-21 14:39 | disposition home or self-care (01) ==
PROVIDERS: Emergency Provider Physician Assistant Medical
DX: R10.9 Unspecified abdominal pain (principal); R11.2 Nausea with vomiting, unspecified
CPT/HCPCS: 80053; 81001; 81003; 83690; 85025; 87086; 96360; 99283; 99284